=== PATIENT | male | born 1995 | race Hispanic/Latino ===

== ENCOUNTER 2017-04-12 15:27 | Emergency (ER) | payer SELFPAY ==
[2017-04-12 15:58] LABS: Bilirubin Negative (Negative); Blood, Urine Small (Negative); Glucose, Urine (Dipstick) Negative (Negative); Ketone, Urine Negative (Negative); Nitrite Negative (Negative); Protein, Urine (Dipstick) Negative (Neg-Trace); Urobilinogen 0.2 mg/dL (0.2-1.0)
[2017-04-12 16:02] LABS: Bacteria/HPF Rare-Few HPF (None Seen); Hyaline Casts/LPF 4-6 HYALINE CAST LPF (0-3 Hyaline); Squamous Epithelial None Seen HPF (0-3)
[2017-04-12] MEDS ORDERED: Azithromycin 250 MG TAB ONE (17:05)
[2017-04-12] MEDS ORDERED: Lidocaine 1% PF 5 ML VIAL ONE (17:05)
[2017-04-12] MEDS ORDERED: cefTRIAXone\\ROCEPHIN 250 MG VIAL ONE (17:05)
== END 2017-04-12 17:36 | disposition home or self-care (01) ==
LOC: ERS 15:27
DX: R36.9 Urethral discharge, unspecified (principal); R30.0 Dysuria; F17.210 Nicotine dependence, cigarettes, uncomplicated
CPT/HCPCS: 81003; 81015; 87491; 87591; 96372; J0696; J2001